=== PATIENT | female | born 2000 | race Caucasian/White ===

== ENCOUNTER 2024-04-16 00:08 | Inpatient (IN) | payer BC ==
[~2024-04-16] VITALS: Ht 154.9 cm; Wt 78.0 kg
--- NOTE | ~2024-04-16 | OR ---
[facility] [address] [place] [address] [address] DATE OF OPERATION: 04/17/2024 SURGEON: Seema Orlando DO PREOPERATIVE DIAGNOSES: 1. Intrauterine at 41 weeks gestation. 2. Non-reassuring heart tracing. 3. Persistent occiput posterior positioning. 4. clubfoot. POSTOPERATIVE DIAGNOSES: 1. Intrauterine at 41 weeks gestation. 2. Non-reassuring heart tracing. 3. Persistent occiput posterior positioning. 4. clubfoot. SUPERVISOR CAB: None. ANESTHESIA: Epidural with postoperative TAP block. PROCEDURE PERFORMED: Primary low transverse delivery. COMPLICATIONS: None. ESTIMATED BLOOD LOSS: 600 mL. DRAINS: Alexander to gravity. SPECIMENS: Cord blood and gases. FINDINGS: Delivery of viable male , 7 pounds and 5 ounces with Apgars of 7 and 9, born in the LOT position with significant caput via primary low transverse section. PATIENT NAME: MIKE HIGGINBOTHAM OPERATIVE REPORT DATE OF : 99 REPORT #: [id number] PHYSICIAN: SEEMA ORLANDO (MELISSA) PCP: SEEMA ORLANDO (MELISSA) REPORT IS CONFIDENTIAL AND NOT TO BE RELEASED WITHOUT AUTHORIZATION [facility] [address] [place] [address] Draft Thick meconium noted. Normal uterus, tubes, and ovaries. Cord arterial blood gas, pH 7.21, pCO2 of 63.8, HCO3 25.4, and base excess -4.5. INDICATIONS: Ms. Higginbotham is a very pleasant 23-year-old G1, P0, with intrauterine at 41 weeks gestation, presented for induction of labor. She received one dose of Cytotec and made slow progression. Persistent occiput posterior position was noted and maternal repositioning was attempted. Contractions were also noted to be inadequate and Pitocin was started. The patient did have a prolonged deceleration. Pitocin was stopped and baby recovered well. The patient continued to make extremely slow change and [place] units demonstrated an adequate contractions. Pitocin was restarted and the patient had another prolonged deceleration with some very slow recovery. Decision was made to proceed with primary low transverse section. Risks, benefits, and alternatives were discussed with the patient and partner in detail. All questions were answered to the best of my ability and the patient wishes to proceed. DESCRIPTION OF PROCEDURE: The patient was taken to the OR. A time-out was performed to confirm correct patient, correct procedure. Epidural anesthesia had previously been administered and was bolused and found to be adequate. A Alexander catheter had previously been inserted. The patient was prepped and draped in the supine position with a bump on the right hip. The patient received Ancef 2 g preoperatively as well as azithromycin 500 mg preoperatively. Once epidural was noted to be adequate, a Pfannenstiel skin incision was made approximately 2 cm above the pubic symphysis and carried down to the fascia. Fascia was nicked in the midline. Fascial incision was extended bilaterally using curved Rodrigues scissors. The fascia was grasped with Nina's, elevated, and the underlying rectus dissected off bluntly and sharply. The peritoneum was entered bluntly and peritoneal incision was extended cephalad, caudad using blunt and sharp dissection. Lower uterine segment was identified and Shahriar self retractor was placed. Hysterotomy was performed using surgical scalpel for thick meconium fluid. Hysterotomy was extended bilaterally using blunt dissection. The surgeon's hand was placed in the uterine cavity and the head elevated and delivered with the assistance of fundal pressure in the LOT position with significant caput noted. No nuchal or other explanation for prolonged decelerations. was delivered, was vigorous and cried at delivery. Cord was doubly clamped and cut and the handed to the waiting pediatric team for further care. Cord gases were obtained and cord blood was obtained for routine analysis. The placenta was expressed, intact with a centrally inserted three-vessel cord. The uterine cavity was cleared of any remaining products of conception or clot. Pitocin was administered per protocol and bleeding was normal. Hysterotomy was closed in two layers of Monocryl. The 1st being a running locked layer and the 2nd being a running imbricating layer in the vertical manner. Small amount of oozing was noted in the midline and this was made hemostatic with [id number]. The pelvis was irrigated and PATIENT NAME: MIKE HIGGINBOTHAM OPERATIVE REPORT DATE OF : 99 REPORT #: [id number] PHYSICIAN: SEEMA ORLANDO (MELISSA) PCP: SEEMA ORLANDO (MELISSA) DO REPORT IS CONFIDENTIAL AND NOT TO BE RELEASED WITHOUT AUTHORIZATION [address] [address] Draft found to be hemostatic. Cecily was applied to the hysterotomy. The Shahriar self retractor was removed and peritoneum was reapproximated using 2-0 Vicryl in a running nonlocked manner. Rectus was made hemostatic with judicious use of Bovie electrocautery and plicated loosely in the midline with three interrupted sutures of 0 Vicryl. Fascia was reapproximated using 0 Vicryl in a running nonlocked manner. Subcu was made hemostatic with Bovie electrocautery. Irrigated and reapproximated using 3-0 Vicryl. Skin was reapproximated using surgical jayne. The uterus was Crede'd for scant amount of blood. The patient remained in the PACU for postoperative TAP block per Anesthesia. Sponge, needle, and instrument counts correct x2 at the end of the procedure. DO BAUDILIO Topete/MODL /[id number] Copies: ~ PATIENT NAME: MIKE HIGGINBOTHAM OPERATIVE REPORT DATE OF : 99 REPORT #: [id number] PHYSICIAN: SEEMA ORLANDO (MELISSA) PCP: SEEMA ORLANDO (MELISSA) DO REPORT IS CONFIDENTIAL AND NOT TO BE RELEASED WITHOUT AUTHORIZATION
[~2024-04-16 00:08] MED LIST: CALCIUM CARBONATE 500 MG CHEW PO PRN; LACTATED RINGER'S 1,000 ML IV SCH; MAGNESIUM HYDROXIDE/AL HYDROX 30 ML CUP PO PRN
[2024-04-16] MEDS ORDERED: OXYTOCIN/DEXTROSE 5% 20 UNITS/100 ML BAG IV SCH (00:30)
[2024-04-16 00:40] LABS: HEMATOCRIT 35.5 % (35.0-50.0); HEMOGLOBIN 11.8 g/dL (12.0-18.0); MCH 30.3 (27-36); MCHC 33.2 g/dl (30-36); MCV 91.4 fl (81-99); RBC 3.88 M/ul (4.3-5.7); RDW 13.3 (10.5-15.0)
[2024-04-16 00:51] VITALS: BP 125/78
[2024-04-16] MEDS ORDERED: miSOPROStoL 25 MCG TAB PV SCH (01:00)
[2024-04-16 01:22] LABS: ABO O; ANTIBODY SCREEN NEGATIVE; RH POSITIVE
[2024-04-16 01:23] LABS: AMPHETAMINES, URINE NEGATIVE (NEGATIVE); BARBITURATES, URINE NEGATIVE (NEGATIVE); BENZODIAZEPINE, URINE NEGATIVE (NEGATIVE); BUPRENORPHINE, URINE NEGATIVE (NEGATIVE); CANNABINOID, URINE NEGATIVE (NEGATIVE); COCAINE, URINE NEGATIVE (NEGATIVE); ECSTASY, URINE NEGATIVE (NEGATIVE); FENTANYL, URINE NEGATIVE (NEGATIVE); METHADONE, URINE NEGATIVE (NEGATIVE); OPIATES, URINE NEGATIVE (NEGATIVE); OXYCODONE, URINE NEGATIVE (NEGATIVE); PHENCYCLIDINE, URINE NEGATIVE (NEGATIVE)
--- NOTE | 2024-04-16 13:45 | PR ---
[facility] [address] [place], [place] [address] Signed Progress Notes IP Datetime Report Generated by CPN: 04/16/2024 13:45 PROGRESS NOTES: [id number] Impression: Normal Progression of Labor; Reassuring Heart Rate Procedures: Artificial ROM; Sterile Vag Exam Plan: Continue Present Management VITAL SIGNS: [id number] Vital Signs: Reviewed; Within Normal Limits EXAM: [id number] Dilatation: 4.0 Effacement: 80 Station: -3 Contractions: Irregular MEMBRANES: [id number] Comments: Pt seen and examined. Doing well. Contractions remain painful. Bulging membranes noted on and recommend AROM. AROM easily performed for moderate amount of clear fluid. Mother and fetus tolerated well. Discussed anticipated course of labor / delivery. All questions answered. FETUS A: [id number] FHR Baseline: 130 Variability: Moderate 6-25bpm Accelerations: 15X15 Decelerations: None FHR Category: Category I Presentation: Vertex Comments on Fetus A: No evidence of metabolic acidosis FETUS B: [id number] Signing Physician: Seema Orlando DO Copies: ~ *Electronically Signed* 04/16/24 5660 SEEMA ORLANDO (MELISSA) DO PATIENT NAME: MIKE JOHNSON PROGRESS NOTE DATE OF : 99 PHYSICIAN: SEEMA ORLANDO (JD) DO RPT #: [id number] REPORT IS CONFIDENTIAL AND NOT TO BE RELEASED WITHOUT AUTHORIZATION
[2024-04-16] MEDS ORDERED: BUPIVACAINE HCL 0.25% 10 ML SDV INJ ONE (17:43)
[2024-04-16] MEDS ORDERED: LIDOCAINE HCL 2% 5 ML SDV ONE (17:43)
[2024-04-16] MEDS ORDERED: ROPIVACAINE 0.2% 200 ML BAG ONE (17:43)
--- NOTE | 2024-04-16 19:05 | PR ---
[facility] [address] [place], [place] [address] Signed Progress Notes IP Datetime Report Generated by CPErnestina: 04/16/2024 19:05 PROGRESS NOTES: [id number] Impression: Normal Progression of Labor; Reassuring Heart Rate Other Impressions: Slow progression of labor due to OP positioning Procedures: Intrauterine Pressure Catheter; Scalp Electrode; Sterile Vag Exam Plan: Continue Present Management Other Informed Consents: Late note from 18:30 VITAL SIGNS: [id number] Vital Signs: Reviewed; Within Normal Limits EXAM: [id number] Dilatation: 4.0 Effacement: 80 Station: -2 Contractions: Inadequate MEMBRANES: [id number] Comments: Pt seen and examined. Comfortable w/ epidural. Discussed no change from last exam. Exam performed demonstrating direct OP positioning. IUPC and FSE placed. Will monitor and consider oxytocin augmentation. FETUS A: [id number] FHR Baseline: 130 Variability: Moderate 6-25bpm Accelerations: 15X15 Decelerations: None FHR Category: Category I Presentation: Vertex Comments on Fetus A: No evidence of metabolic acidosis FETUS B: [id number] Signing Physician: Seema Orlando DO Copies: ~ *Electronically Signed* 04/16/24 190 SEEMA ORLANDO (MELISSA) DO PATIENT NAME: MIKE JOHNSON PROGRESS NOTE DATE OF : 99 PHYSICIAN: SEEMA ORLANDO (JD) DO RPT #: [id number] REPORT IS CONFIDENTIAL AND NOT TO BE RELEASED WITHOUT AUTHORIZATION
[2024-04-16] MEDS ORDERED: ePHEDrine sulfate 5 MG/ML SYRINGE IV PRN (19:30)
[2024-04-16] MEDS ORDERED: ROPIVACAINE 0.2% 200 ML BAG EPIDURAL SCH ×2 (19:30)
[2024-04-16] MEDS ORDERED: LACTATED RINGER'S 500 ML IV PRN (19:30)
[2024-04-16] MEDS ORDERED: LACTATED RINGER'S 2,000 ML IV ONE (19:30)
[2024-04-16] MEDS ORDERED: OXYTOCIN/0.9 % SODIUM CHLORIDE 500 ML IV SCH (20:00)
--- NOTE | 2024-04-16 20:54 | PR ---
[facility] [address] [place], [place] [address] Signed Progress Notes IP Datetime Report Generated by CPN: 04/16/2024 20:53 PROGRESS NOTES: [id number] Impression: Normal Progression of Labor; Reassuring Heart Rate Other Impressions: Prolonged decel Procedures: Sterile Vag Exam Plan: Continue Present Management Other Informed Consents: Late note from 18:30 VITAL SIGNS: [id number] Vital Signs: Reviewed; Within Normal Limits EXAM: [id number] Dilatation: 5.0 Effacement: 80 Station: -2 Contractions: Inadequate MEMBRANES: C1121466 Comments: Called to pt room for prolonged deceleration. Baby recovered with position changes and IV fluids. Reviewed reassuring FHT, inadequate contractions, and vertex rotation to ROT position. Hold pitocin and consider restarting when indicated by protocol. Reviewed w/ pt who desires continued trial of vaginal delivery. Discussed indications for if needed. All questions answered. FETUS A: [id number] FHR Baseline: 130 Variability: Moderate 6-25bpm Accelerations: 15X15 Decelerations: None FHR Category: Category I Presentation: Vertex Comments on Fetus A: No evidence of metabolic acidosis FETUS B: [id number] Signing Physician: Seema Orlando DO Copies: ~ *Electronically Signed* 04/16/242052 SEEMA ORLANDO (MELISSA) DO PATIENT NAME: MIKE JOHNSON PROGRESS NOTE DATE OF : 99 PHYSICIAN: SEEMA ORLANDO (JD) DO RPT #: [id number] REPORT IS CONFIDENTIAL AND NOT TO BE RELEASED WITHOUT AUTHORIZATION
[2024-04-16] MEDS ORDERED: SOD+POT BICARB/CITRIC ACID 2 EA TABLET.EFF PO ONE (23:45)
[2024-04-16] MEDS ORDERED: LACTATED RINGER'S 1,000 ML IV PRN (23:45)
[2024-04-16] MEDS ORDERED: AZITHROMYCIN/DEXTROSE 500 MG/250 ML BAG IV STA (23:54)
[2024-04-16] MEDS ORDERED: AZITHROMYCIN/DEXTROSE 500 MG/250 ML BAG ONE (23:55)
[2024-04-16] MEDS ORDERED: CEFAZOLIN SODIUM 2 GM/20 ML SYR ONE (23:56)
--- NOTE | 2024-04-16 23:58 | PR ---
[facility] [address] [place], [place] [address] Signed Progress Notes IP Datetime Report Generated by CPN: 04/16/2024 23:58 PROGRESS NOTES: [id number] Impression: Non-reassuring Heart Rate Other Impressions: Prolonged decel Procedures: Sterile Vag Exam Plan: Deliver- Section Informed Consent Obtain: Section Delivery; Risks, Benefits and Alternatives Discussed Other Informed Consents: Late note from 18:30 VITAL SIGNS: [id number] Vital Signs: Reviewed; Within Normal Limits EXAM: [id number] Dilatation: 6.0 Effacement: 80 Station: -2 Contractions: Irregular / Inadequate MEMBRANES: B0109614 Comments: Pt seen and examined. Prolonged deceleration noted. Will continue intrauterine rescussitation. Recommend primary C/S. Pt understands and agrees. OR crew notified and en route. Consents signed and orders placed. Continue intrauterine rescussitation and prepare for delivery FETUS A: [id number] FHR Baseline: 130 Variability: Moderate 6-25bpm Accelerations: 15X15 Decelerations: Prolonged FHR Category: Category II Presentation: Vertex Comments on Fetus A: No evidence of metabolic acidosis FETUS B: [id number] Signing Physician: Seema Orlando DO Copies: ~ *Electronically Signed* 04/16/24 8919 SEEMA ORLANDO (MELISSA) DO PATIENT NAME: MIKE JOHNSON PROGRESS NOTE DATE OF : 99 PHYSICIAN: SEEMA ORLANDO) DO RPT #: [id number] REPORT IS CONFIDENTIAL AND NOT TO BE RELEASED WITHOUT AUTHORIZATION
[2024-04-17] MEDS ORDERED: LIDOCAINE 2% W/ EPI 1:200,000 20 ML SDV ONE (00:05)
[2024-04-17] MEDS ORDERED: ondansetron HCL 4 MG/2 ML VIAL ONE (00:10)
[2024-04-17] MEDS ORDERED: OXYTOCIN 10 UNITS/ML VIAL ONE (00:10)
[2024-04-17] MEDS ORDERED: MORPHINE SULFATE 1 MG/ML VIAL ONE (00:10)
[2024-04-17] MEDS ORDERED: droPERidol 5 MG/2 ML VIAL ONE (00:13)
[2024-04-17] MEDS ORDERED: LACTATED RINGER'S 1,000 ML IV ONE ×3 (00:21)
[2024-04-17] MEDS ORDERED: ePHEDrine sulfate 50 MG/ML AMP ONE (00:40)
[2024-04-17] MEDS ORDERED: diphenhydrAMINE HCL 25 MG CAP PO PRN (00:45)
[2024-04-17] MEDS ORDERED: KETOROLAC TROMETHAMINE 30 MG/ML VIAL IV PRN (00:45)
[2024-04-17] MEDS ORDERED: droPERidol 5 MG/2 ML VIAL IV PRN (00:45)
[2024-04-17] MEDS ORDERED: METOCLOPRAMIDE HCL 10 MG/2 ML SDV IV PRN ×3 (00:45→01:15)
[2024-04-17] MEDS ORDERED: diphenhydrAMINE HCL 50 MG/ML VIAL IV PRN (00:45)
[2024-04-17] MEDS ORDERED: MORPHINE SULFATE 4 MG/ML VIAL IV PRN (00:45)
[2024-04-17] MEDS ORDERED: NALOXONE HCL 0.4 MG SYR IV PRN ×2 (00:45)
[2024-04-17] MEDS ORDERED: PROCHLORPERAZINE EDISYLATE 10 MG/2 ML VIAL IV PRN ×3 (00:45→01:15)
[2024-04-17] MEDS ORDERED: fentaNYL citrate 50 MCG/ML SDV IV PRN (00:45)
[2024-04-17] MEDS ORDERED: MORPHINE SULFATE 10 MG/ML VIAL IV PRN (00:45)
[2024-04-17] MEDS ORDERED: ondansetron HCL 4 MG/2 ML VIAL IV PRN ×3 (00:45→01:15)
[2024-04-17] MEDS ORDERED: IBLOOD GLUCOSE TEST STRIP 1 EA TEST VI PRN (00:45)
[2024-04-17] MEDS ORDERED: Ropivacaine HCl 0.5% 30 ML VIAL ONE (00:48)
[2024-04-17] MEDS ORDERED: SODIUM CHLORIDE 0.9% 40 ML IV ONE (00:48)
[2024-04-17] MEDS ORDERED: DEXAMETHASONE SOD PHOS 4 MG/ML VIAL ONE (00:49)
[2024-04-17] MEDS ORDERED: LACTATED RINGER'S 1,000 ML IV SCH ×2 (01:08→05:00)
[2024-04-17] MEDS ORDERED: PROMETHAZINE HCL 25 MG SUPP PR PRN (01:15)
[2024-04-17] MEDS ORDERED: OXYTOCIN/0.9 % SODIUM CHLORIDE 500 ML IV SCH (01:15)
[2024-04-17] MEDS ORDERED: bisacodyL 10 MG SUPP PR PRN (01:15)
[2024-04-17] MEDS ORDERED: OXYCODONE HCL 5 MG TAB PO PRN (01:15)
[2024-04-17] MEDS ORDERED: HYDROCODONE/ACETA 5/325 TAB PO PRN (01:15)
[2024-04-17] MEDS ORDERED: PROMETHAZINE HCL 25 MG TAB PO PRN (01:15)
[2024-04-17] MEDS ORDERED: OXYCODONE/APAP 5/325 TAB PO PRN (01:15)
--- NOTE | 2024-04-17 01:27 | NUR ---
04/17/24 0127 Micheline Nolan 0111-PATIENT ARRIVED BACK TO ROOM 105 FOR RECOVERY. PATIENT IS VERY DROWSY EYES CLOSED REACTS TO VERBAL STIMULI DENIES PAIN OR NAUSEA LAYING SUPINE. LR WITH 30 OXYTOCIN INFUSING TO RIGHT HAND CDI. LEFT HAND SALINE LOCK CDI. SPINAL LEVEL AT T6. REPORTS "NUMBNESS AND TINGLING TO BOTH HANDS WHEN RN ASKED. PATIENT ABLE TO MOVE ARMS. FUNDUS FIRM LIGHT RUBRA DRAINAGE ON LEORA PAD TO THE RIGHT. BARTON CATHETER DRAINING YELLOW URINE. AT BEDSIDE. 0115-ASH RN AT BEDSIDE HELING FEED BABY TO BREAST PATIENT IS SLEEPING. 0126-PATIENT SLEEPING ASH RN CONTINUES TO FEED BABY TO RIGHT BREAST.
[2024-04-17 01:45] VITALS: BP 113/66
[2024-04-17] MEDS ORDERED: KETOROLAC TROMETHAMINE 30 MG/ML VIAL IV SCH (02:00)
[2024-04-17 05:52] LABS: HEMATOCRIT 32.7 % (35.0-50.0); HEMOGLOBIN 10.6 g/dL (12.0-18.0); MCH 30.1 (27-36); MCHC 32.5 g/dl (30-36); MCV 92.6 fl (81-99); RBC 3.54 M/ul (4.3-5.7); RDW 13.3 (10.5-15.0)
[2024-04-17] MEDS ORDERED: SIMETHICONE 125 MG TABLET CHEWABLE PO SCH (07:00)
[2024-04-17] MEDS ORDERED: CEFAZOLIN SODIUM 2 GM/20 ML SYR IV SCH (07:00)
[2024-04-17] MEDS ORDERED: SENNOSIDES/DOCUSATE 1 EA TAB PO SCH (09:00)
[2024-04-17] MEDS ORDERED: ENOXAPARIN SODIUM 40 MG/0.4 ML SYR SUB-Q SCH (09:00)
[2024-04-18] MEDS ORDERED: IBUPROFEN 600 MG TAB PO SCH (02:00)
--- NOTE | 2024-04-19 05:28 | PR ---
[facility] [address] [facility] [place], [place] [address] Signed PP Progress Notes Datetime Report Generated by CAMACHO: 04/19/2024 05:28 SUBJECTIVE: [id number] Pain: Within Normal Limits Nausea/Vomiting: Denies Flatus: Yes Vital Signs: [id number] Vital Signs: Reviewed; Within Normal Limits EXAM: Ongoing Cardiovascular: Not Done Respiratory: Normal Abdomen/Uterus: Normal Lochia: Normal Vulva/Perineum: Normal Breasts: Normal CVA Tenderness: Not Done Extremities: Normal Incision: Normal Progress: Normal IMPRESSION/PLAN/PROCEDURES: [id number] Impression: Normal Progression Plan: Continue Present Management; Remove [place]; Discharge Procedures: None Progress Notes: Pt recovering well today. Pain well controlled. Normal lochia. Nursing. Desires D/C home. [place] removed and steri-strips placed. Signing Physician: Jenny Meyer MD Copies: ~ *Electronically Signed* 04/19/24 0528 JENNY MEYER MD PATIENT NAME: MIKE JOHNSON PROGRESS NOTE DATE OF : 99 PHYSICIAN: JENNY MEYER MD RPT #: [id number] REPORT IS CONFIDENTIAL AND NOT TO BE RELEASED WITHOUT AUTHORIZATION
== END 2024-04-19 10:05 | disposition home or self-care (01) | DRG 788 ==
LOC: FBC 00:08
PROVIDERS: Obstetrics & Gynecology; ADMIT Obstetrics & Gynecology; ATTEND Obstetrics & Gynecology
PROC: 10H07YZ Insertion of Other Device into Products of Conception, Via Natural or Artificial Opening (ICD-10-PCS; 2024-04-17)
PROC: 10D00Z1 Extraction of Products of Conception, Low, Open Approach (ICD-10-PCS; principal; 2024-04-17 00:38)
DX: O64.0XX0 Obstructed labor due to incomplete rotation of fetal head, not applicable or unspecified (principal); O48.0 Post-term pregnancy; O76 Abnormality in fetal heart rate and rhythm complicating labor and delivery; Z3A.41 41 weeks gestation of pregnancy; Z37.0 Single live birth; Z88.8 Allergy status to other drugs, medicaments and biological substances
CPT/HCPCS: 01961; 36415; 80307; 82803; 85027; 86850; 86900; 86901; A9270; J0456; J1100; J1650; J1790; J1885; J2001; J2274; J2405; J2590; J2795; J7121